=== PATIENT | female | born 1950 | race Caucasian/White ===

== ENCOUNTER → 2018-02-11 07:41 | Outpatient (CLI) | payer MEDICARE, OTHER, SELFPAY ==
[2018-02-11 11:09] LABS: Anion Gap 8 (5-15); BUN 14 mg/dL (7-18); BUN/Creat Ratio 15.6 RATIO (10-20); Chloride 108 mmol/L (98-107); Cholesterol 187 mg/dL (200); EST Glomerular Filtration Rate 67 mL/min (>60); Est Glom Filt Rate - Afr Amer 81 mL/min (>60); Glucose 105 mg/dL (74-106); High Density Lipoprotein 69 mg/dL; Sodium Level 146 mmol/L (136-145); Triglycerides 172 mg/dL; Very Low Density Lipoprotein 34 mg/dL (5-40)
== END ==
PROVIDERS: Family Provider Family Medicine; PCP Family Medicine; Visit Provider Family Medicine
DX: I10 Essential (primary) hypertension (principal); E78.00 Pure hypercholesterolemia, unspecified
CPT/HCPCS: 36415; 80048; 80061

== ENCOUNTER → 2018-04-03 10:28 | Outpatient (CLI) | payer MEDICARE, OTHER, SELFPAY ==
--- NOTE | 2018-04-03 10:29 | BI_ITS ---
MAMMOGRAPHY - BILATERAL SCREENING REASON FOR EXAM: Female, 68 years old. Routine annual screening examination. PERTINENT HISTORY: Non-contributory. Remote left stereotactic breast biopsy. TECHNIQUE: Digital bilateral breast eligio (3D mammographic acquisition) in the CC and MLO projections. 2-D mediolateral oblique (MLO) and craniocaudad (CC) views of both breasts were obtained. CAD: Full Field Digital Mammography with Computer Added Detection was performed. COMPARISON: Comparison is made with prior examination of March 27, 2017 and March 26, 2016. FINDINGS: Breast Composition: There are scattered areas of fibroglandular density. Stable 1.5 cm x 1.1 cm nodular density in the central retroareolar region of the left breast. A tissue marker is seen within this nodular density. No new mass lesion or cluster microcalcification is present. No other significant abnormalities are identified. There has been no significant change since the prior study. BI/SCREENING MAMM (CAD), BILAT IMPRESSION: Stable bilateral screening mammogram. Yearly follow-up mammogram recommended. (A) ASSESSMENT CATEGORY: BIRADS Category 2: Benign. A letter regarding these results will be sent to the patient by the facility within 30 days. Approximately 10% of breast cancers are not detected by mammography. A normal mammogram should not delay biopsy of a clinically suspicious abnormality. [id number] Electronically Signed: Danielito Chong MD at 12:36 EDT Tel [phone], Service support ,
== END ==
PROVIDERS: Family Provider Family Medicine; PCP Family Medicine; Visit Provider Family Medicine
DX: Z12.31 Encounter for screening mammogram for malignant neoplasm of breast (principal)
CPT/HCPCS: 77063; 77067

== ENCOUNTER → 2019-02-10 | Outpatient (CLI) | payer MEDICARE, OTHER, SELFPAY ==
[2019-02-10 10:08] LABS: Absolute Lymphocyte Count 1.95 X10^3/uL (0.83-4.51); Absolute Neutrophil Count 3.5 X10^3/uL (2.0-7.7); Basophil# 0.03 X10^3/uL; Basophil% 0.5 % (0-1); Eosinophil# 0.08 X10^3/uL; Eosinophils% 1.3 % (0-5); Hematocrit 42.7 % (37-47); Hemoglobin 14.7 g/dL (12.0-15.0); Lymphocyte # 1.95 X10^3/ul (4.0); Lymphocyte % 32.2 % (19-41); Mean Corp Hgb Conc 34.4 g/dL (32-36); Mean Corpuscular Hgb 32.7 pg (27.0-32.0); Mean Corpuscular Volume 94.9 fL (81-99); Monocyte# 0.44 X10^3/uL; Monocyte% 7.3 % (0-10); NRBC Flagged by Analyzer 0 % (0-5); Neutrophil # 3.53 X10^3/uL (2.7-7.7); Neutrophil % 58.4 % (47-70); Platelet Count 237 K/mm3 (150-450); RBC Distribution Width CV 12.6 % (11.6-14.6); White Blood Count 6.1 K/mm3 (4.4-11.0)
[2019-02-10 10:27] LABS: Anion Gap 9 (5-15); BUN 14 mg/dL (7-18); BUN/Creat Ratio 14.9 RATIO (10-20); Chloride 110 mmol/L (98-107); Cholesterol 163 mg/dL (200); Creatinine, Serum 0.94 mg/dL (0.55-1.02); EST Glomerular Filtration Rate 63 mL/min (>60); Est Glom Filt Rate - Afr Amer 76 mL/min (>60); Glucose 106 mg/dL (74-106); High Density Lipoprotein 65 mg/dL; Potassium 3.7 mmol/L (3.5-5.1); Sodium Level 145 mmol/L (136-145); Triglycerides 160 mg/dL; Very Low Density Lipoprotein 32 mg/dL (5-40)
== END | disposition home or self-care (01) ==
LOC: MTLAB 08:03
PROVIDERS: Family Provider Family Medicine; PCP Family Medicine; Referring Provider Family Medicine; Visit Provider Family Medicine
DX: I10 Essential (primary) hypertension (principal); E78.00 Pure hypercholesterolemia, unspecified
CPT/HCPCS: 36415; 80048; 80061; 85025

== ENCOUNTER → 2019-04-15 | Outpatient (CLI) | payer MEDICARE, OTHER, SELFPAY ==
--- NOTE | 2019-04-15 10:12 | BI_ITS ---
BILATERAL DIGITAL MAMMOGRAM WITH TOMOSYNTHESIS: Mediolateraloblique and craniocaudal views demonstrate an asymmetrical density in the superior medial aspect of the left breast which was previously identified no cluster but was seen on the previous exam obtained on 04/03/2018 and was previously biopsied and is unchanged. This appears to represent a focal area of fibrocystic change. No microcalcification or architectural distortion is seen. No evidence of skin thickening. No significant change since 04/03/2018 . Breast Density: There are scattered areas of fibroglandular density. CAD was used to assist in final assessment. IMPRESSION: NORMAL MAMMOGRAM BILATERALLY. ASSESSMENT CATEGORY: BIRADS Category 1: Negative. A letter regarding these results will be sent to the patient by the facility within 30 days. FOLLOW UP RECOMMENDATION: Yearly follow up mammogram recommended. (A) Approximately 10% of breast cancers are not detected by mammography. A normal mammogram should not delay biopsy of a clinically suspicious abnormality. Electronically Signed: Ajit Laura, at 17:31 EDT Tel , Service support , BI/SCREEN MAMM (CAD) W/JULIÁN CARDENAS
== END | disposition home or self-care (01) ==
LOC: OPBI 10:10
PROVIDERS: Family Provider Family Medicine; PCP Family Medicine; Referring Provider Family Medicine; Visit Provider Family Medicine
DX: Z12.31 Encounter for screening mammogram for malignant neoplasm of breast (principal)
CPT/HCPCS: 77063; 77067

== ENCOUNTER → 2020-02-16 07:59 | Outpatient (CLI) | payer MEDICARE, OTHER, SELFPAY ==
[2020-02-16 10:14] LABS: AST(SGOT) 17 U/L (15-37); Alanine Aminotransfer ALT/SGPT 35 U/L (13-56); Albumin, Serum 3.9 g/dL (3.2-5.0); Alkaline Phosphatase 82 U/L (45-117); Anion Gap 5 (5-15); BUN 16 mg/dL (7-18); Calcium,Total 9.1 mg/dL (8.5-10.1); Chloride 110 mmol/L (98-107); Cholesterol 163 mg/dL (200); Creatinine, Serum 0.94 mg/dL (0.55-1.02); EST Glomerular Filtration Rate 63 mL/min (>60); Est Glom Filt Rate - Afr Amer 76 mL/min (>60); Globulin 3.8 g/dL (2.2-4.2); Glucose 107 mg/dL (74-106); High Density Lipoprotein 57 mg/dL; Potassium 3.7 mmol/L (3.5-5.1); Protein, Total 7.7 g/dL (6.4-8.2); Sodium Level 143 mmol/L (136-145); Triglycerides 138 mg/dL; Very Low Density Lipoprotein 28 mg/dL (5-40)
== END ==
PROVIDERS: PCP Family Medicine; Referring Provider Family Medicine; Visit Provider Family Medicine
DX: I10 Essential (primary) hypertension (principal)
CPT/HCPCS: 36415; 80053; 80061

== ENCOUNTER → 2020-04-19 | Outpatient (CLI) | payer MEDICARE, OTHER, SELFPAY ==
--- NOTE | 2020-04-19 10:19 | BI_ITS ---
MAMMOGRAPHY - BILATERAL SCREENING REASON FOR EXAM: Female, 70 years old. Routine annual screening examination. PERTINENT HISTORY: Non-contributory. Remote left stereotactic breast biopsy. TECHNIQUE: Digital bilateral breast julián (3D mammographic acquisition) in the CC and MLO projections. 2-D mediolateral oblique (MLO) and craniocaudad (CC) views of both breasts were obtained. CAD: Full Field Digital Mammography with Computer Added Detection was performed. COMPARISON: Comparison is made with prior study dated 04/15/2019 and 04/03/2018. FINDINGS: Breast Composition: There are scattered areas of fibroglandular density. There are no dominant masses or suspicious calcifications. A tissue clip marker is seen within the nodular density in the slightly upper medial aspect of the left breast. This is unchanged. No other significant abnormalities are identified. There has been no significant change since the prior study. BI/SCREEN MAMM (CAD) W/JULIÁN BILAT IMPRESSION: Stable bilateral screening mammogram. Yearly follow-up mammogram recommended. (A) ASSESSMENT CATEGORY: BIRADS Category 2: Benign. A letter regarding these results will be sent to the patient by the facility within 30 days. Approximately 10% of breast cancers are not detected by mammography. A normal mammogram should not delay biopsy of a clinically suspicious abnormality. [id number] Electronically Signed: Danielito Chong, at 14:10 EDT , Service support ,
--- NOTE | 2020-04-19 10:24 | BD_ITS ---
STUDY: DUAL ENERGY X-RAY ABSORPTIOMETRY / DXA REASON FOR EXAM: Female, 70 years old. FIELD CARE AD[facility]ATE- SURGICAL -- HX OF HRT FOR SHORT WHILE -- TAKES 600MG CALCIUM + VITAMIN D -- DOES MODERATE AMOUNT OF EXERCISE -- HONG OF 0.5 INCH TECHNIQUE: Bone Mineral Density (BMD) measurements of lumbar spine and bilateral hips were obtained. COMPARISON: None. FINDINGS: Lumbar Spine (L1-L4): g/cm2 (1.193) / T-score (0.2) / Z-score (1.8) Findings are suggestive of normal bone density with a low fracture risk. Left Femur Total: g/cm2 (0.886) / T-score (-1.0) / Z-score (0.4) Left Femoral Neck: g/cm2 (0.853) / T-score (-1.3) / Z-score (0.3) Right Femur Total: g/cm2 (0.846) / T-score (-1.3) / Z-score (0.1) Right Femoral Neck: g/cm2 (0.783) / T-score (-1.8) / Z-score (-0.2) BD/Dexa Bone Density Study IMPRESSION: The patient is considered osteopenic as outlined below according to World [employer] Organization (WHO) criteria with a moderate fracture risk. Reference Information: The T-score is the number of standard deviations above or below the standard which is normal for young adults at their peak bone mineral density. The World Health Organization (WHO) interprets the T-scores as follows: Above -1 Normal bone density Between -1 and -2.5 Osteopenia Equal to / or below -2.5 Osteoporosis As a practical clinical guideline, osteopenia may be graded as follows: Mild -1 through -1.5 Moderate -1.6 through -2.0 Severe -2.1 through -2.4 The Z-score is the number of standard deviations above or below age-matched controls. A Z-score of less than -1.5 would be considered abnormal. References: 1. NIH Osteoporosis and Related Bone Diseases www osteo.org 2. International Society for Clinical Densitometry www iscd.org 3. National Osteoporosis Foundation www nof.org Electronically Signed: Danielito Chong, at 13:01 EDT , Service support ,
== END | disposition home or self-care (01) ==
LOC: OPBD 10:17
PROVIDERS: PCP Family Medicine; Referring Provider Family Medicine; Visit Provider Family Medicine
DX: Z78.0 Asymptomatic menopausal state (principal); Z12.31 Encounter for screening mammogram for malignant neoplasm of breast
CPT/HCPCS: 77063; 77067; 77080

== ENCOUNTER 2020-09-05 11:52 | Outpatient (RCR) | payer MEDICARE, OTHER, SELFPAY | END 2020-09-05 23:59 | LOC: IMMUN 11:52 | PROVIDERS: PCP Family Medicine; Visit Provider Family Medicine | DX: Z23 Encounter for immunization (principal) | CPT/HCPCS: 0011A; 0012A ==

== ENCOUNTER → 2021-02-21 07:32 | Outpatient (CLI) | payer MEDICARE, OTHER, SELFPAY ==
[2021-02-21 10:21] LABS: Absolute Lymphocyte Count 2.44 X10^3/uL (0.83-4.51); Basophil# 0.04 X10^3/uL; Basophil% 0.7 % (0-1); Eosinophil# 0.11 X10^3/uL; Eosinophils% 1.8 % (0-5); Hematocrit 46.4 % (37-47); Hemoglobin 15.4 g/dL (12.0-15.0); Lymphocyte # 2.44 X10^3/ul (0.83-4.51); Lymphocyte % 40.7 % (19-41); Mean Corp Hgb Conc 33.2 g/dL (32-36); Mean Corpuscular Hgb 31.3 pg (27.0-32.0); Mean Corpuscular Volume 94.3 fL (81-99); Mean Platelet Vol. 9.5 fl (6.2-12.0); Monocyte# 0.42 X10^3/uL; NRBC Flagged by Analyzer 0 % (0-5); Neutrophil # 2.96 X10^3/uL (2.7-7.7); Neutrophil % 49.5 % (47-70); Platelet Count 258 K/mm3 (150-450); RBC Distribution Width SD 45.1 fl (35.1-43.9); Red Blood Count 4.92 M/mm3 (4.2-5.4)
[2021-02-21 10:32] LABS: AST(SGOT) 19 U/L (15-37); Alanine Aminotransfer ALT/SGPT 34 U/L (13-56); Alkaline Phosphatase 85 U/L (45-117); Anion Gap 6 (5-15); BUN 15 mg/dL (7-18); Calcium,Total 9.1 mg/dL (8.5-10.1); Chloride 108 mmol/L (98-107); Cholesterol 172 mg/dL (200); Creatinine, Serum 0.94 mg/dL (0.55-1.02); EST Glomerular Filtration Rate 63 mL/min (>60); Est Glom Filt Rate - Afr Amer 76 mL/min (>60); Glucose 100 mg/dL (74-106); High Density Lipoprotein 66 mg/dL; Potassium 3.7 mmol/L (3.5-5.1); Sodium Level 143 mmol/L (136-145); Triglycerides 112 mg/dL; Very Low Density Lipoprotein 22 mg/dL (5-40)
== END ==
PROVIDERS: PCP Family Medicine; Referring Provider Family Medicine; Visit Provider Family Medicine
DX: I10 Essential (primary) hypertension (principal)
CPT/HCPCS: 36415; 80053; 80061; 85025

== ENCOUNTER → 2021-03-23 | Outpatient (CLI) | payer MEDICARE, OTHER, SELFPAY | END | disposition home or self-care (01) | LOC: LABSPEC 14:38 | PROVIDERS: PCP Family Medicine; Referring Provider Family Medicine; Visit Provider Family Medicine | DX: Z20.822 Contact with and (suspected) exposure to COVID-19 (principal) | CPT/HCPCS: 87635; U0005; U0003 ==

== ENCOUNTER → 2021-04-20 16:09 | Outpatient (CLI) | payer MEDICARE, OTHER, SELFPAY ==
--- NOTE | 2021-04-20 16:11 | BI_ITS ---
MAMMOGRAPHY - BILATERAL SCREENING REASON FOR EXAM: Female, 71 years old. Routine annual screening examination. PERTINENT HISTORY: Non-contributory. TECHNIQUE: Digital bilateral breast julián (3D mammographic acquisition) in the CC and MLO projections. 2-D mediolateral oblique (MLO) and craniocaudad (CC) views of both breasts were obtained. CAD: Full Field Digital Mammography with Computer Added Detection was performed. COMPARISON: Comparison is made with prior study dated 04/19/2020 and 04/15/2019. FINDINGS: Breast Composition: There are scattered areas of fibroglandular density. There are no dominant masses or suspicious calcifications. Stable 1.1 cm nodular density in the upper central portion of the left breast. A tissue clip marker seen within. No other significant abnormalities are identified. There has been no significant change since the prior study. BI/SCRN MAMM (CAD)W/JULIÁN BILAT IMPRESSION: Stable bilateral screening mammogram. Yearly follow-up mammogram recommended. (A) ASSESSMENT CATEGORY: BIRADS Category 2: Benign. A letter regarding these results will be sent to the patient by the facility within 30 days. Approximately 10% of breast cancers are not detected by mammography. A normal mammogram should not delay biopsy of a clinically suspicious abnormality. [id number] Electronically Signed: Danielito Chong MD at 8:39 EDT , Service support ,
== END ==
PROVIDERS: PCP Family Medicine; Referring Provider Family Medicine; Visit Provider Family Medicine
DX: Z12.31 Encounter for screening mammogram for malignant neoplasm of breast (principal)
CPT/HCPCS: 77063; 77067

== ENCOUNTER 2021-09-26 11:33 | Outpatient (CLI) | payer MEDICARE, OTHER, SELFPAY ==
[2021-09-26 11:38] LABS: Bacteria 0 SEEN /hpf (None Seen); Mucous, Urine 0 SEEN /hpf (<or=2+)
[2021-09-26 15:06] LABS: Absolute Lymphocyte Count 1.34 X10^3/uL (0.83-4.51); Absolute Neutrophil Count 3.3 X10^3/uL (2.0-7.7); Basophil# 0.04 X10^3/uL; Basophil% 0.8 % (0-1); Eosinophils% 1.9 % (0-5); Hematocrit 45.6 % (37-47); Hemoglobin 15.1 g/dL (12.0-15.0); Lymphocyte # 1.34 X10^3/ul (0.83-4.51); Lymphocyte % 25.8 % (19-41); Mean Corp Hgb Conc 33.1 g/dL (32-36); Mean Corpuscular Hgb 31.1 pg (27.0-32.0); Mean Platelet Vol. 9.4 fl (6.2-12.0); Monocyte# 0.44 X10^3/uL; Monocyte% 8.5 % (0-10); NRBC Flagged by Analyzer 0 % (0-5); Neutrophil # 3.26 X10^3/uL (2.7-7.7); Neutrophil % 62.8 % (47-70); Platelet Count 264 K/mm3 (150-450); RBC Distribution Width CV 12.7 % (11.6-14.6); RBC Distribution Width SD 44.3 fl (35.1-43.9); Red Blood Count 4.85 M/mm3 (4.2-5.4); White Blood Count 5.2 K/mm3 (4.4-11.0)
[2021-09-26 15:28] LABS: Color, Urine Yellow (Yellow); Glucose, Dipstick Normal (Normal); Ketone-Dipstick Negative (Negative); Leukocyte Esterase-Dipstick 25 /ul (Negative); Nitrite-Dipstick Negative (Negative); Occult Blood-Urine 10 /ul (Negative); Protein-Dipstick Negative (Negative); Specific Gravity, Urine 1.005 (1.002-1.030); Urine Bilirubin Dipstick Negative (Negative); Urine Clarity Sl. Cloudy (Clear); Urine Urobilinogen Normal (Normal); Urine pH 6.5 (5.0 - 8.0)
[2021-09-26 15:32] LABS: Vitamin D,25 Hydroxy 35.5 ng/mL
[2021-09-26 15:40] LABS: AST(SGOT) 21 U/L (15-37); Alanine Aminotransfer ALT/SGPT 34 U/L (13-56); Alkaline Phosphatase 86 U/L (45-117); Anion Gap 8 (5-15); BUN 18 mg/dL (7-18); BUN/Creat Ratio 18.2 RATIO (10-20); Calcium,Total 8.9 mg/dL (8.5-10.1); Chloride 108 mmol/L (98-107); Cholesterol 153 mg/dL (200); Creatinine, Serum 0.99 mg/dL (0.55-1.02); EST Glomerular Filtration Rate 59 mL/min (>60); Est Glom Filt Rate - Afr Amer 71 mL/min (>60); Globulin 3.9 g/dL (2.2-4.2); Glucose 126 mg/dL (74-106); High Density Lipoprotein 64 mg/dL; Potassium 3.8 mmol/L (3.5-5.1); Protein, Total 7.9 g/dL (6.4-8.2); Sodium Level 140 mmol/L (136-145); Thyroid Stim Hormone (TSH) 1.38 uIU/mL (0.358-3.74); Triglycerides 91 mg/dL; Very Low Density Lipoprotein 18 mg/dL (5-40)
[2021-09-26 16:03] LABS: White Blood Cells 0-5 SEEN /hpf (0-5)
[2021-09-26 16:04] LABS: Red Blood Cells-Urine 0-5 SEEN /hpf (0-5); Squamous Epithelial Cells - UA 0-5 SEEN /hpf (5-10)
[2021-09-27 12:01] LABS: Hemoglobin A1c 5.6 % (3.8-5.6)
== END 2021-09-26 23:59 | disposition home or self-care (01) ==
LOC: MFPLAB 11:35
PROVIDERS: PCP Family Medicine; Referring Provider Family Medicine; Visit Provider Family Medicine
DX: R73.09 Other abnormal glucose (principal); I10 Essential (primary) hypertension; M85.80 Other specified disorders of bone density and structure, unspecified site
CPT/HCPCS: 36415; 80053; 80061; 81001; 82306; 83036; 84443; 85025

== ENCOUNTER → 2022-05-01 | Outpatient (CLI) | payer MEDICARE, OTHER, SELFPAY ==
--- NOTE | 2022-05-01 10:28 | BI_ITS ---
MAMMOGRAPHY - BILATERAL SCREENING REASON FOR EXAM: Female, 72 years old. Routine annual screening examination. PERTINENT HISTORY: Non-contributory. Prior left stereotactic breast biopsy. TECHNIQUE: Digital bilateral breast julián (3D mammographic acquisition) in the CC and MLO projections. 2-D mediolateral oblique (MLO) and craniocaudad (CC) views of both breasts were obtained. CAD: Full Field Digital Mammography with Computer Added Detection was performed. COMPARISON: Comparison is made with prior study 04/20/2021 and 04/19/2020. FINDINGS: Breast Composition: There are scattered areas of fibroglandular density. There is a 1 cm x 1 cm nodular density in the deep upper lateral aspect of the right breast. Correlation with ultrasound is recommended. Stable 1.1 cm nodular density in the upper central portion of the left breast a tissue clip marker is once again seen within. No other significant abnormalities are identified. BI/SCRN MAMM (CAD)W/JULIÁN BILAT IMPRESSION: New 1 cm x 1 cm nodular density in the upper central portion of the left breast. Correlation with ultrasound is recommended. ASSESSMENT CATEGORY: BIRADS Category 0: Incomplete. Need additional imaging evaluation. A letter regarding these results will be sent to the patient by the facility within 30 days. Approximately 10% of breast cancers are not detected by mammography. A normal mammogram should not delay biopsy of a clinically suspicious abnormality. [id number] Electronically Signed: Danielito Chong MD at 11:26 EDT ,
== END | disposition home or self-care (01) ==
LOC: OPBI 10:26
PROVIDERS: PCP Family Medicine; Referring Provider Family Medicine; Visit Provider Family Medicine
DX: Z12.31 Encounter for screening mammogram for malignant neoplasm of breast (principal)
CPT/HCPCS: 77063; 77067

== ENCOUNTER → 2022-05-03 | Outpatient (CLI) | payer MEDICARE, OTHER, SELFPAY ==
--- NOTE | 2022-05-03 10:46 | US_ITS ---
STUDY: ULTRASOUND BREAST - RIGHT REASON FOR EXAM: Female, 72 years old. Abnormal screening mammogram TECHNIQUE: Axial and longitudinal images of the RIGHT breast were performed with a high resolution ultrasound transducer. # OF IMAGES: 22 COMPARISON: Comparison is made with prior mammogram dated 05/01/2022. FINDINGS: RIGHT Breast: The mammographic abnormality corresponds to a 5 mm x 5 mm x 5 mm hypoechoic solid nodule with posterior shadowing. This is at the 10 o''clock position breast at 10 cm from nipple. Adjacent to this, there is a 4 mm x 4 mm x 4 mm hypoechoic irregular solid nodule. Biopsy recommended. There is also evidence of an enlarged right axillary lymph node. This measures 2.8 cm x 1.6 cm x 1.1 cm _ US/Breast Limited Unilateral IMPRESSION: 2 adjacent small hypoechoic nodules at the 10 o''clock position breast at 10 cm from nipple as described. Biopsy recommended. Enlarged right axillary lymph node. ASSESSMENT CATEGORY: BIRADS Category 4: Suspicious - Biopsy Should Be Considered. A letter regarding these results will be sent to the patient by the facility within 30 days. Electronically Signed: Danielito Chong MD at 14:30 EDT ,
== END | disposition home or self-care (01) ==
LOC: OPUS 10:45
PROVIDERS: PCP Family Medicine; Visit Provider Family Medicine
DX: R92.8 Other abnormal and inconclusive findings on diagnostic imaging of breast (principal)
CPT/HCPCS: 76642

== ENCOUNTER → 2022-05-24 | Outpatient (CLI) | payer MEDICARE, OTHER, SELFPAY ==
--- NOTE | 2022-05-24 | BRBX_PTH ---
PATIENT: DAVID HOUSE LOC: OPUS U#:[id number] AGE/SX: 72/F ROOM: RE05/24/[address]: Dr. Claudy Moise MD : 1950 BED: DIS: 05/24/2022 SPEC #: [id number] RECD: 05/25/22 10:07 STATUS: CANDELARIO GIVENS #: [id number] VANESSA: 05/24/22 00:[address]: Claudy Moise DEPT: SURGICAL PATHOLOGY RECD BY: Lawrence Hackett ENTERED: 05/25/22 10:08 SP TYPE: BREAST BX OTHR DR: Dr. Ajit Foy MD Tissues: Right breast, NOS Procedures: Surgery Specimen Level IV HEADER OPERATION: Biopsy right breast PRE-OP DIAGNOSIS: Abnormal mammogram TISSUE SUBMITTED: Biopsy right breast MICROSCOPIC DIAGNOSIS Right breast, core biopsy: Invasive ductal carcinoma, nuclear grade 1 (0.4 cm in greatest length). Ductal carcinoma in situ. See comment. ARIN:juancho 05/28/2022 COMMENT Ductal carcinoma in situ shows solid pattern, nuclear grade low to intermediate and focal calcifications. Immunohistochemistry ([id number]) supports the above diagnosis. ER/MN/[id number] studies are being performed on sections of tumor and the results from this study will be reported separately ([id number]). Case has been reviewed in consultation with Dr. Pollock who concurs with the above diagnosis. IDC:AM MICROSCOPIC DESCRIPTION Slides are reviewed. GROSS DESCRIPTION Received in fixative is one container labeled with the patient's name and designated right breast. The specimen consists of multiple elongated fragments of remy-yellow fibroadipose tissue that in aggregate measure 2.5 x 0.6 x 0.1 cm. The entire specimen is submitted in one cassette. / ARIN:juancho 05/25/2022 TC:0 CPT: 64853
--- NOTE | 2022-05-24 | IMM_PTH ---
PATIENT: DAVID HOUSE LOC: OPUS U#:[id number] AGE/SX: 72/F ROOM: RE05/24/[address]: Dr. Claudy Moise MD : 1950 BED: DIS: 05/24/2022 SPEC #: [id number] RECD: 05/28/22 13:31 STATUS: CANDELARIO REQ #: [id number] VANESSA: 05/24/22 00:[address]: Claudy Moies DEPT: IMMUNOHISTOCHEMISTRY RECD BY: Liss Tao ENTERED: 05/28/22 13:34 SP TYPE: IMMUNO OTHR DR: Dr. Ajit Foy MD Tissues: Right breast, NOS Procedures: CALPONIN-1 (add) CK5-6 (add) CK8 (add) E-CAD (add) HER2 JORDY (add) KI-67 (add) P53 (add) AZ (add) IN SITU HYBRIDIZATION P40 (add) ER (initial) PHYSICIAN & [address] [address] SPECIMEN INFORMATION: Tissue Source: Right breast Clinical Info: Abnormal mammogram Specimen Number: [id number] CPT code: 43518, 85101 x6, 04089 x3, 31134 x2 METHODOLOGY: Deparaffinized sections of prefer/formalin-fixed tissue or PAP/DQ stained slides are incubated with monoclonal/polyclonal antibodies/oligonucleotide probes. Localization is made via biotin free immunoperoxidase method. Appropriate controls are performed and reacted as expected. Results on target cell population are indicated in the following table: RESULTS: ANTIBODY / CLONE RESULT E-Cad (ECH-6) positive CK8 ([id number]) positive Calponin-1 (CA368Q) negative * CK5-6 (D5 & 1684) negative * P40 (BC28) negative * P53 (DO-7) positive, low (wild type) Ki-67 (30-9) positive, low, ~5-10% *?Positive in the area of DCIS. MORPHOMETRIC ANALYSIS ER (clone 6F11) >95%, strong intensity AZ (clone 16/1E2) >95%, strong intensity Her-2Neu (clone CB11) 1-2+ ?Area of DCIS shows positive staining (3+). The prognostic test for HER2 is performed on formalin-fixed paraffin embedded tissue. A 3+ (positive) staining pattern is defined as intense, homogeneous, complete, circumferential membranous staining in >10% of contiguous tumor cells. A similar weak (2+) staining pattern is interpreted as equivocal. FCO follow-up testing is recommended for all equivocal cases. Positivity/negativity for ER/AZ is reported if > or < 1% of the tumor cells are immuno- reactive, respectively. The ASCO/CAP criteria is used for scoring. Reference: Journal of Clinical Oncology, 2013; 31:0487-9715 & 2010; 16:2633-7314. Duration of fixation: 54 Hrs; Sample Adequate: Yes. These assays have not been validated on decalcified tissues. Results should be interpreted with caution given the likelihood of false negativity on decalcified specimens. These tests were developed and their performance characteristics determined by [facility]. They may not have been cleared or approved by the U.S. Food and Drug Administration. The FDA has determined that such clearance or approval is not necessary. The above immunohistochemical/dualISH markers are ordered and reviewed by the Pathologist. INTERPRETATION: Right breast, core biopsy: Invasive ductal carcinoma. Ductal carcinoma in situ. Positive for estrogen receptors (favorable prognostic indicator). Positive for progesterone receptors (favorable prognostic indicator). Equivocal for overexpression of YFN1bkb. SJ:juancho 05/29/2022 ADDENDUM ADDENDUM ADDENDUM ADDENDUM ADDENDUM ADDENDUM ADDENDUM ADDENDUM ADDENDUM ADDENDUM ADDENDUM ADDENDUM ADDENDUM ADDENDUM ADDENDUM ADDENDUM ADDENDUM ADDENDUM ADDENDUM ADDENDUM ADDENDUM ADDENDUM 05/30/2022 12:15 ADDENDUM 05/30/2022 12:15 ADDENDUM 05/30/2022 12:15 ADDENDUM 05/30/2022 12:15 ADDENDUM 05/30/2022 12:15 IN SITU HYBRIDIZATION (FCO) FOR HER2 Interpretation: Negative / Not Amplified HER2 : CEP-17 Ratio: 1.1 Average HER2 Signal: 2.1 Average CEP-17 Signal: 1.9 Number of Tumor Cells Scanned: 50 Interpretative Information: The INFORM HER2 Dual FCO DNA Probe Cocktail assay is performed on formalin-fixed paraffin embedded tissue and determines HER2 gene status by detecting HER2 copies via silver in situ hybridization (SISH) and Chromosome 17 copies via chromogenic red in situ hybridization on tumor cells. A minimum of 20 cells representing > 10% of contiguous and homogeneous invasive tumor cells were analyzed. HER2 gene status is classified as Non-amplified (HER2/Chr17 ratio < 2.0) or Amplified (HER2/Chr17 ratio greater than or equal to 2.0). If the resulting HER2/Chr17 ratio falls within 1.8 - 2.2 (Borderline), retesting by FISH is recommended. Reference: Mahsa CHAND, Jam MOONEY, Carmine JUAREZ, et al: Recommendations for Human Epidermal Growth Factor Receptor 2 Testing in Breast Cancer: [place] Society of Clinical Oncology / [employer] of [place] [employer] Clinical Practice Guideline Update. J Clin Oncol 31:6153-1290, 2013. SJ:juancho 05/30/2022
--- NOTE | 2022-05-24 12:26 | US_ITS ---
STUDY: ULTRASOUND BREAST - RIGHT REASON FOR EXAM: Female, 72 years old. Ultrasound guided right breast biopsy. TECHNIQUE: Axial and longitudinal images of the RIGHT breast were performed with a high resolution ultrasound transducer. # OF IMAGES: 19 COMPARISON: Comparison is made with prior sonogram of the right breast dated 05/03/2022. FINDINGS: RIGHT Breast: Degenerative performed 3 core biopsies of the hypoechoic nodular density at the 10 o''clock position in the breast at 10 cm from nipple. Core biopsies of a second 4 mm x 6 mm x 5 mm nodular densities was obtained as well. US/US Breast Biopsy 1st Lesion IMPRESSION: Successful ultrasound-guided breast biopsy of the 2 adjacent nodular densities in the right breast. ASSESSMENT CATEGORY: BIRADS Category 4: Suspicious - Biopsy Should Be Considered. A letter regarding these results will be sent to the patient by the facility within 30 days. Electronically Signed: Danielito Chong MD at 8:55 EST ,
--- NOTE | 2022-05-24 13:49 | PCM.OPRPT ---
Report of Operation Date of Procedure: 05/24/22 Pre-Operative Diagnosis: Right breast abnormal mammogram Post-Operative Diagnosis: Same Surgery/Procedure Performed:: Ultrasound-guided right breast core needle biopsy Specimen's removed: Right breast specimens Description of Procedure: The right breast was imaged and the mass was localized. An area inferior to this was prepped and draped and injected with a small amount of anesthetic. Next a small bobbi was made with a scalpel. The 14-gauge biopsy needle was placed into the breast but every time the needle was fired a ricocheted off the mass superiorly. Next the mammotome needle was placed in the breast deep to it and several biopsies were performed. A clip was then placed in the mass. Steri-Strip and bandage were then placed over the incision. Patient tolerated the procedure well.
== END | disposition home or self-care (01) ==
PROVIDERS: PCP Family Medicine; Referring Provider Surgery; Visit Provider Surgery
DX: D05.81 Other specified type of carcinoma in situ of right breast (principal); R92.8 Other abnormal and inconclusive findings on diagnostic imaging of breast
CPT/HCPCS: 19083; 88305; 88341; 88342; 88368

== ENCOUNTER 2022-06-19 08:23 | Day surgery (SDC) | payer MEDICARE, OTHER, SELFPAY ==
[2022-06-19] VITALS (9 sets, daily range): BP systolic 94–133; BP diastolic 46–63; PULSE 54–72; RESP 14–16; TEMP 36.6–37.1; O2SAT 93–98; BMI 28.3
--- NOTE | 2022-06-19 | AXNB_PTH ---
PATIENT: DAVID HOUSE LOC: [facility] [place] U#:[id number] AGE/SX: 72/F ROOM: RE06/19/[address]: Dr. Claudy Moise MD : 1950 BED: DIS: 06/19/2022 SPEC #: [id number] RECD: 06/19/22 12:55 STATUS: CANDELARIO RESaima #: [id number] VANESSA: 06/19/22 00:[address]: Claudy Moise DEPT: SURGICAL PATHOLOGY RECD BY: Liss Tao ENTERED: 06/19/22 13:25 SP TYPE: AX NODE BX OTHR DR: Dr. Ajit Foy MD Tissues: A - Axillary lymph node, NOS B - Right breast, NOS C - Right breast, NOS D - Skin of breast, NOS Procedures: Frozen Section (charge) Frozen Section Add'l (chg) Surgery Specimen Level IV Surgery Specimen Level V HEADER OPERATION: Partial mastectomy, stereotactic wire localization and radiotracer PRE-OP DIAGNOSIS: Invasive ductal carcinoma of breast TISSUE SUBMITTED: A ? Right axillary sentinel lymph nodes, FS, B ? Right breast mass, short suture - superior, long suture - lateral, C ? Right breast mass new superior margin, stitch olson new superior margin, D ? Right axillary skin tag FROZEN SECTION DIAGNOSIS A. Right axillary sentinel lymph nodes, biopsy: Two out of two lymph nodes negative for carcinoma. AM:juancho 06/19/2022 MICROSCOPIC DIAGNOSIS A. Right axillary sentinel lymph node, biopsy: Two out of two lymph nodes, negative for metastatic carcinoma. See comment. B. Right breast mass, partial mastectomy with needle localization: Invasive ductal carcinoma. Ductal carcinoma in situ. See cancer summary in the comment section. C. Right breast mass, new superior margin: Negative for carcinoma. D. Right axillary skin lesion, biopsy: Intradermal nevus. SJ:juancho 06/22/2022 COMMENT A. The lymph nodes are negative for metastatic carcinoma on multiple H & E levels and immunohisto-chemical stains for cytokeratins ([id number]). B. BREAST CANCER SUMMARY Procedure ? partial mastectomy with needle localization Specimen laterality - right Tumor site ? not specified Tumor size ? 1.5 x 1 x 1 cm Histologic type ? invasive ductal carcinoma, not otherwise specified. Histologic grade (Elly grade): Glandular/tubular differentiation score - 2 Nuclear pleomorphism score - 2 Mitotic count score - 1 Overall grade - grade 1 (score of 5) Tumor focality ? single focus of invasive carcinoma. Ductal carcinoma in situ - present Positive for extensive intraductal component (EIC). Size (extent) of DCIS ? DCIS comprise about 30% of the total tumor volume. Number of blocks with DCIS - 6 Number of blocks examined - 13 Architectural pattern ? solid and cribriform Nuclear grade - grade 2 (intermediate) Necrosis - present, central (expansive comedo necrosis) Lobular carcinoma in situ ? not identified Tumor extension: Skin ? skin is not present. Nipple ? not applicable Skeletal muscle ? no skeletal muscle is present. Margins: Invasive carcinoma margins - uninvolved by invasive carcinoma. The tumor is 0.3 cm away from the closest posterior and medial margins. Ductal carcinoma in situ margins ? uninvolved by DCIS. DCIS is 0.1 cm away from the closest posterior margin and 0.3 cm away from the next closest medial margin. Regional lymph nodes: Number of lymph nodes examined - 2 Number of sentinel lymph nodes examined - 2 Number of lymph nodes with macrometastases, micrometastases or isolated tumor cells - 0 Treatment effect - no known presurgical therapy. Lymphvascular invasion ? not identified Dermal lymphvascular invasion ? not applicable Distant metastasis - not applicable Additional Pathologic Findings ? intraductal hyperplasia without atypia. Ancillary Studies: Previously performed on same tumor ([id number] / [id number]) ER: positive (>95%, strong intensity) [place]: positive (>95%, strong intensity) Qyh5ojg: equivocal (1-2+) Ipl1cmo by FCO: Negative / not amplified Microcalcifications ? not identified Clinical History - Please make reference to previous specimen ([id number]), right breast, core biopsy with diagnosis of ?invasive ductal carcinoma and ductal carcinoma in situ.? PATHOLOGIC STAGE: pT1c pN0 pMx The above summary is in compliance with [employer] [place] [employer] (CAP) Cancer Protocols Checklist and [place] Joint Committee on Cancer (AJCC), Staging Manual, 8th Ed. Case has been reviewed in consultation with Dr. Pollock who concurs with the above diagnosis. IDC:AM MICROSCOPIC DESCRIPTION Slides are reviewed. GROSS DESCRIPTION A - Received fresh for frozen section consultation labeled with the patient's name is a specimen designated right axillary sentinel lymph node. The specimen consists of two irregular fragments of remy-yellow fibrofatty tissue. One fragment measures 3 x 2 x 1 cm and the other fragment measures 2 x 1 x 0.5 cm. Dissection reveals two nodules. The nodules are sectioned and totally submitted in three cassettes as follows: 1 - one small nodule, 2 & 3 - larger nodule, serially sectioned. The specimen is submitted after additional fixation. / AM:juancho 06/19/2022 B - Received fresh for intraoperative consultation labeled with the patient's name is a specimen designated right breast mass. The specimen consists of a piece of fibroadipose tissue with needle localization measuring 6.5 x 5 x 3 cm. The specimen is oriented as follows: short suture - superior, long suture - lateral. The specimen is inked as follows: anterior - yellow, posterior - black, superior - blue, inferior - green, medial - red and lateral - orange. Serial sections reveal a remy, indurated mass measuring 1.5 x 1 x 1 cm. This mass is 0.2 cm away from the closest posterior margin. This information is conveyed to the surgeon intraoperatively. Sections of the rest of the specimen reveal remy-yellow adipose cut surfaces with scant fibrous areas. Contact Printer [employer] Film sections are submitted in 13 cassettes as follows: 1 - perpendicular superior, inferior and lateral margins, 2 - perpendicular medial margin, 35??entire tumor with closest posterior margin, 6 - food service representative section adjacent to the tumor, 712??food service representative sections away from the tumor, 13 - perpendicular anterior margin. The specimen is submitted after additional fixation. / SJ:juancho 06/20/2022 C - Received in fixative is one container labeled with the patient's name and designated right breast mass, stitch olson new superior margin. The specimen consists of a piece of remy-yellow adipose tissue measuring 3 x 2.5 x 0.5 cm. The specimen is oriented by a suture marking new margin. The new margin is inked black and the opposite margin is inked blue. Sections do not reveal any mass lesion. The entire specimen is submitted in two cassettes. The specimen is submitted after additional fixation. / ARIN:juancho 06/20/2022 D - Received in fixative is one container labeled with the patient's name and designated right axillary skin tag. The specimen consists of a polypoid piece of remy-white skin measuring 1.5 x 0.7 x 0.5 cm. The specimen is inked, bisected and submitted entirely in one cassette. The specimen is submitted after additional fixation. / ARIN:juancho 06/20/2022 TC:0 CPT: 45904 x2, 35024 x2, 13444, 63645, 03390 x2
--- NOTE | 2022-06-19 | IMM_PTH ---
PATIENT: DAVID HOUSE LOC: [facility] [place] U#:[id number] AGE/SX: 72/F ROOM: RE06/19/[address]: Dr. Claudy Moise MD : 1950 BED: DIS: 06/19/2022 SPEC #: [id number] RECD: 06/22/22 14:01 STATUS: CANDELARIO RESaima #: [id number] VANESSA: 06/19/22 00:[address]: Claudy Moise DEPT: IMMUNOHISTOCHEMISTRY RECD BY: Liss Tao ENTERED: 06/22/22 14:02 SP TYPE: IMMUNO OTHR DR: Dr. Ajit Foy MD Tissues: A - Axillary lymph node, NOS Procedures: CK7 (add) Pankeratin (initial) Pankeratin (add) PHYSICIAN & INSTITUTION [place] [id number] SPECIMEN INFORMATION: Tissue Source: A ? Right axillary sentinel lymph nodes Clinical Info: Invasive ductal carcinoma of breast Specimen Number: [id number] A1-A3 CPT code: 38326, 48813 x5 METHODOLOGY: Deparaffinized sections of prefer/formalin-fixed tissue or PAP/DQ stained slides are incubated with monoclonal/polyclonal antibodies/oligonucleotide probes. Localization is made via biotin free immunoperoxidase method. Appropriate controls are performed and reacted as expected. Results on target cell population are indicated in the following table: RESULTS: ANTIBODY / CLONE RESULT Block A1 AE1-3 (AE1/AE3/PCK26) negative CK7 (OV-TL12/30) negative Block A2 AE1-3 (AE1/AE3/PCK26) negative CK7 (OV-TL12/30) negative Block A3 AE1-3 (AE1/AE3/PCK26) negative CK7 (OV-TL12/30) negative These tests were developed and their performance characteristics determined by [facility]. They may not have been cleared or approved by the U.S. Food and Drug Administration. The FDA has determined that such clearance or approval is not necessary. The above immunohistochemical/dualISH markers are ordered and reviewed by the Pathologist. INTERPRETATION: A. Right axillary sentinel lymph nodes, biopsy: Two out of two lymph nodes, negative for metastatic carcinoma. SJ:juancho 06/22/2022
--- NOTE | 2022-06-19 09:00 | NM_ITS ---
PROCEDURE: NUCLEAR MEDICINE Injection [place] Node - RIGHT breast(s). REASON FOR EXAM: Female, 72 years old. Right breast cancer. TECHNIQUE: [place] node localization using radionuclide methods of the RIGHT breast(s) was performed following subcutaneous administration of 1.1 mCi of of sulfur colloid Tc-99m. COMPARISON STUDIES : NM - None. CR - Not available for review at this time. CT - Not available for review at this time. MR - Not available for review at this time. US - Not available for review at this time. FINDINGS: 1.1 mCi of technetium labeled sulfur colloid was injected subcutaneously in the periareolar region. NM/Lymph Node Injection Only IMPRESSION: 1.1 mCi of technetium labeled sulfur colloid was injected subcutaneously in the periareolar region for sentinel node imaging. Electronically Signed: Danielito Chong MD at 10:24 EST ,
--- NOTE | 2022-06-19 09:14 | EKG12_ITS ---
Test Reason : PRE OP Blood Pressure : / mmHG Vent. Rate : 064 BPM Atrial Rate : 064 BPM P-R Int : 186 ms QRS Dur : 104 ms QT Int : 404 ms P-R-T Axes : 044 -46 041 degrees QTc Int : 416 ms Normal sinus rhythm Left axis deviation Abnormal ECG When compared with ECG of 15-JUL-2006 13:13, No significant change was found Confirmed by JAI WOODS, RUDY ([id number]), brands editor DAYNE SAGASTUME ([id number]) on 06/22/2022 11:00:12 AM Referred By: Claudy Moise Confirmed By:CARLA VERGARA MD
[2022-06-19] MEDS: Lactated Ringers 1,000 ML 15 ML IV ×2 (09:29→17:52)
--- NOTE | 2022-06-19 10:23 | BI_ITS ---
SURGICAL BREAST SPECIMEN RADIOGRAPH CLINICAL: Document presence of tissue clip marker in biopsy specimen. FINDINGS: Specimen shows presence of tissue clip marker. Electronically Signed: Danielito Chong MD at 13:16 EST , BI/Breast Biopsy Specimen IMPRESSION: undefined
--- NOTE | 2022-06-19 10:43 | HP.PCM_ITS ---
History and Physical Date of Admission: 06/19/22 Intake Intake Visit Reasons:?DISCUSS SURGERY Chief Complaint: Discuss Surgery Exercise Specialist Required: No Is patient in pain?: No Allergies No Known Allergies Allergy (Unverified 06/13/22 10:33) Medications amlodipine 10 mg tablet 10 mg PO DAILY 05/14/22 [History Confirmed 06/13/22] atorvastatin 40 mg tablet 40 mg PO DAILY 05/14/22 [History Confirmed 06/13/22] biotin 2,500 mcg capsule 2,500 mcg PO DAILY 05/14/22 [History Confirmed 06/13/22] brimonidine 0.2 % eye drops 1 drp ophthalmic (eye) BID 05/14/22 [History Confirmed 06/13/22] calcium carbonate 600 mg-vitamin D3 12.5 mcg (500 unit) capsule (Calcium 600 with Vitamin D3) 1 cap PO DAILY 05/14/22 [History Confirmed 06/13/22] latanoprost 0.005 % eye drops 1 drp ophthalmic (eye) DAILY 05/14/22 [History Confirmed 06/13/22] losartan 100 mg tablet 100 mg PO DAILY 05/14/22 [History Confirmed 06/13/22] metoprolol succinate 50 mg tablet,extended release 24 hr 50 mg PO DAILY 05/14/22 [History Confirmed 06/13/22] PFSH Medical History? Basal cell carcinoma of skin of nose Erythrocytosis Glaucoma Hemorrhoids High cholesterol Surgical History? History of breast biopsy History of cataract extraction History of section History of cholecystectomy History of colonoscopy History of D&C History of hysterectomy History of YAG laser capsulotomy of lens of left eye S/P Mohs surgery for basal cell carcinoma Family History? Grandfather Cancer ?? ? lung ?? ? maternalGrandmother Diabetes ?? ? paternal CVA (cerebral vascular accident) ?? ? maternalMother Hypertension CVA (cerebral vascular accident) Social History? household members:? spouse Smoking Status:? Never smoker alcohol intake:? current alcohol intake frequency: holidays/special occasions only Alcohol type: wine details:? occasional substance use type:? does not use HPI HPI HPI: Patient is a 72-year-old female with invasive lobular carcinoma of the right breast.? Patient is here to discuss surgery after biopsy.? Patient has seen oncology to discuss her immunohistochemistry with them. ROS General General: No weight change or fatigue HEENT HEENT: No difficulty swallowing Endo Endocrine: No thyroid disease Breast Breast: Yes right breast lump Musc Musculoskeletal: No back problems or arthritis Cardio Cardiovascular: No pacemaker, heart disease, atrial fibrillation, high blood pressure, heart attack, heart stent, palpitations or chest pain Psych Psychiatric: No depression or anxiety Resp Respiratory: No shortness of breath, No cough, No COPD, No asthma and No emphysema Gastro Gastrointestinal: No abdominal pain, No nausea or vomiting, No diarrhea, No constipation, No blood in stool, No acid reflux, No hemorrhoids, No ulcers, No gallbladder problem and No black,tarry stools Cooper Hematologic: No blood thinners Exam Const General: cooperative Orientation: alert and oriented x3 HENMT Head: normal to inspection Neck Neck: normal visual inspection and full ROM Chest Chest palpation & inspection: normal inspection of the chest Resp Effort & Inspection: normal respiratory effort Auscultation: clear to auscultation bilaterally Cardio Rate: regular rate Rhythm: regular rhythm GI Inspection: non-distended Palpation: soft and nontender Skin General: no rashes or lesions noted Neuro General: patient alert and patient oriented x3 Extrem General: full ROM Psych Appearance: grossly normal Mental Status: mental status grossly normal Assessment and Plan Assessment and Plan (1) Invasive ductal carcinoma of breast: ?Status:?Acute ?Qualifiers: ?Laterality:?right? Qualified Code(s):?C50.911 - Malignant neoplasm of unspecified site of right female breast ?Plan: Patient has invasive carcinoma of the right breast.? I discussed this with her in detail and I discussed surgical options.? I discussed partial mastectomy with sentinel lymph node biopsy with possible axillary dissection and stereotactic wire localization.? Patient understands the procedure and is willing to proceed.? I also discussed postoperative course as well as radiation and possible chemotherapy needs.? Patient understands the risks and is when to proceed with partial mastectomy and sentinel lymph node biopsy.? I discussed the risks of the procedure such as bleeding, infection, hematoma formation, nerve damage or seroma or hematoma formation.? Patient understands the risks and is willing to proceed. Claudy Moise MD Pager: [facility], [address] [place] [address] Office: I have examined the patient and the H&P has been reviewed. There are no clinical changes since date of exam.
[2022-06-19] MEDS: Cefazolin 2 GM in 0.9% Normal Saline 100 ML IV (12:05)
[2022-06-19] MEDS: Isosulfan Blue 1% 5 ML Vial (12:20)
[2022-06-19] MEDS: 0.9% Normal Saline (Pres. free 10 ML Vial (12:22)
[2022-06-19] MEDS: Bupivacaine Mpf 0.5% 30 ML VIAL (13:23)
--- NOTE | 2022-06-19 13:58 | PCM.OPRPT ---
Report of Operation Date of Procedure: 06/19/22 Pre-Operative Diagnosis: Right breast cancer Post-Operative Diagnosis: Right breast cancer Surgery/Procedure Performed:: 1. Stereotactic guided right breast wire localization 2. Right partial mastectomy 3. Right axillary sentinel lymph node biopsy Specimen's removed: 1. Right breast mass 2. Right breast mass new superior margin 3. Right axillary sentinel lymph nodes 4. Axillary skin tag Description of Procedure: Patient was brought to the stereotactic table and placed into the stereotactic table. The breast was compressed and spot images were obtained and the clip was centered in the x-ray. Neck stereotactic images were obtained and the clip was targeted. The breast was prepped and injected with local anesthetic and then the wire was placed in the breast under stereotactic x-ray guidance. The needle was removed leaving the wire in place and then mammogram was obtained and the wire appeared to be in good position. Next the patient was brought to the operating room and general anesthesia was induced. 5 cc of Lymphazurin was injected in the retroareolar space on the right followed by 5 cc of saline as a chaser. 5 minutes of breast massage were performed. Next the breast and axilla were prepped and draped in usual sterile fashion. The right axillary incision was marked and then injected with local anesthetic and then incised with a scalpel and electrocautery was used to deepen this to the axillary fascia. Next using the neoprobe and searching for blue dye 2 lymph nodes were removed using small clips and sharp dissection. There is good hemostasis and these nodes were sent for pathology. Frozen section revealed that both nodes were negative. The axillary incision was packed with wet gauze and then the breast was addressed. An incision was made anterior to where the wire entered the breast and then the wire was brought into the incision. The wire was followed to the mass which was dissected free circumferentially using electrocautery. This was marked and sent for mammogram which showed that the wire and clip were both in the specimen. Next the patient's mass was sent for pathology and a new superior margin was removed due to a little bit of nodularity. The new margin was marked with a suture. After the margins came back negative the breast incision was closed with interrupted 3-0 Vicryl suture in a running 4-0 Monocryl. The axillary packing was removed and the deep axillary contents were closed using 3-0 Vicryl suture. The skin was closed using interrupted 3-0 Vicryl suture in a running 4-0 Monocryl. The patient is skin tag just adjacent to the incision which was removed. Next Dermabond was placed over both incisions and a Surgi-Bra was placed. Patient was awoken and taken to PACU in stable condition. Admit VTE Documentation VTE Mechan Device Prophylaxis: SCD's
--- NOTE | 2022-06-19 14:02 | DCINST_ITS ---
Discharge Instructions Procedure Breast Surgery Diet Discharge Diet: No restrictions Activity Discharge Activity: May Not Drive (for 2-3 days or while taking narcotic pain medications.) and May Shower May shower in (days): 1 Lifting Restrictions: 15 lbs for 1 week Dressing / Incision Call your doctor if your incision/area has: Continuous Slow Oozing, Sudden Increased Bleeding, Increased Pain/ Swelling, Increased Redness, Foul Smelling Discharge and Swelling at the incision site Call your doctor if you observe: Fever of 101 or Higher Suture Line Care: Avoid Pulling/Pushing and Avoid Pinching/Bending Additional Dressing/Incision Instructions:: Tightfitting supportive bra for s upport. Ibuprofen and Tylenol for pain. Oxycodone for breakthrough pain. Follow Up Care Please Follow Up With: Claudy Moise MD When: Please call to schedule 2 week follow up appointment. [phone] Test Results: Test results from this visit will be discussed in further detail at your follow- up appointment, if applicable. Discharge Plan Admission Attending Provider: Claudy Moise Primary Care Provider: Ajit Foy Discharge Orders/Prescriptions Prescriptions: New oxycodone 5 mg tablet 5 - 10 mg PO Q6H PRN (Reason: pain) 5 Days Qty: 20 0RF No Action amlodipine 10 mg tablet 10 mg PO DAILY losartan 100 mg tablet 100 mg PO DAILY metoprolol succinate 50 mg tablet extended release 24 hr 50 mg PO DAILY atorvastatin 40 mg tablet 40 mg PO DAILY latanoprost 0.005 % drops 1 drp ophthalmic (eye) DAILY brimonidine 0.2 % drops 1 drp ophthalmic (eye) BID Rx Instructions: administer approximately 8 hours apart calcium carbonate-vitamin D3 [Calcium 600 with Vitamin D3] 600 mg-12.5 mcg (500 unit) capsule 1 cap PO DAILY biotin 2,500 mcg capsule 2,500 mcg PO DAILY Other Ambulatory Orders: 12 Lead EKG (Routine) Timeframe: [id number] Location: None Selected Ordered By: Dr. Geoff South Referrals / Follow Up: Ajit Foy MD [Primary Care Provider] - Disposition Disposition (needs filled in before D/C Order can be placed): Home, Self Care
--- NOTE | 2022-06-19 14:20 | EKG12_ITS ---
Test Reason : CHEST PAIN Blood Pressure : / mmHG Vent. Rate : 060 BPM Atrial Rate : 060 BPM P-R Int : 204 ms QRS Dur : 106 ms QT Int : 444 ms P-R-T Axes : 058 -43 058 degrees QTc Int : 444 ms Normal sinus rhythm Left axis deviation Abnormal ECG When compared with ECG of 19-JUN-2022 09:14, MANUAL COMPARISON REQUIRED, DATA IS UNCONFIRMED Confirmed by JAI WOODS, RUDY ([id number]), photo editor DAYNE SAGASTUME ([id number]) on 06/22/2022 10:52:15 AM Referred By: Claudy Moise Confirmed By:CARLA VERGARA MD
[2022-06-19] MEDS: Mag Hydrox/Al Hydrox/Simeth 30 ML UDC PO (14:24)
--- NOTE | 2022-06-19 15:02 | SUR.PHASEI ---
1420 PATIENT BECOMES NAUSOUS, PALE AND DIAPHORETIC. COMPLAINS OF SEVERE CHEST PAIN. SPOKE WITH DR ARCE WHO GIVES ORDER FOR MYLANTA 30ML ORAL, STAT EKG AND TROPONIN. 1445 PATIENT STILL COMPLAINS OF CHEST PAIN. UPDATED DR ARCE WHO GIVES ORDER FOR NITRO SUBLINGUAL 0.4MG EVERY 5 MINS UP TO 3 DOSES FOR CHEST PAIN. 1504 PATIENT STATES PAIN HAS IMPROVED. NO NEED FOR FURTHER NITRO
[2022-06-19 15:05] LABS: Troponin-I HS 3 pg/mL (3.0-54.0)
--- NOTE | 2022-06-19 15:07 | SUR.PHASEI ---
PATIENT HAS ONE EPISODE EMESIS
[2022-06-19 19:00] LABS: Troponin-I HS 4 pg/mL (3.0-54.0)
== END 2022-06-19 19:30 | disposition home or self-care (01) ==
LOC: SDC 08:24 → AC 08:25
PROVIDERS: Anesthesiology; PCP Family Medicine; Referring Provider Surgery; Visit Provider Surgery
PROC: (CPT 19301; principal; 2022-06-19 11:45)
DX: D05.11 Intraductal carcinoma in situ of right breast (principal); D23.5 Other benign neoplasm of skin of trunk; I10 Essential (primary) hypertension; E78.00 Pure hypercholesterolemia, unspecified; G47.30 Sleep apnea, unspecified; Z79.899 Other long term (current) drug therapy; Z85.828 Personal history of other malignant neoplasm of skin
CPT/HCPCS: 19301; 11200; 38900; 38525; 19283; 00404; 19281; 38792; 76098; 84484; 88305; 88307; 88331; 88332; 88341; 88342; 93005; A9541; J7120; J2405; J3490; Q9968

== ENCOUNTER → 2022-07-18 | Outpatient (CLI) | payer MEDICARE, OTHER, SELFPAY ==
--- NOTE | 2022-07-18 08:25 | BD_ITS ---
STUDY: DUAL ENERGY X-RAY ABSORPTIOMETRY / DXA REASON FOR EXAM: Female, 72 years old. SCREENING TECHNIQUE: Bone Mineral Density (BMD) measurements of lumbar spine and bilateral hips were obtained. COMPARISON: Comparison is made with prior examination dated 04/19/2020. FINDINGS: Lumbar Spine (L1-L4): g/cm2 (0.958) / T-score (-0.8) / Z-score (1.4) Findings are suggestive of normal bone density with a low fracture risk. Left Femur Total: g/cm2 (0.873) / T-score (-0.6) / Z-score (1.0) Left Femoral Neck: g/cm2 (0.719) / T-score (-1.2) / Z-score (0.7) Right Femur Total: g/cm2 (0.813) / T-score (-1.1) / Z-score (0.5) Right Femoral Neck: g/cm2 (0.660) / T-score (-1.7) / Z-score (0.2) The T-Scores on the most recent prior examination were: Lumbar Spine (L1-L4): There has been worsening of bone density since the previous examination. Left Femur Total: which represents an improvement of 6%. Right Femur Total: which represents an improvement of 3.6%. BD/Dexa Bone Density Study IMPRESSION: The patient is considered osteopenic as outlined below according to World [employer] Organization (WHO) criteria with a moderate fracture risk. There has been improvement of bone density since the previous examination. Reference Information: The T-score is the number of standard deviations above or below the standard which is normal for young adults at their peak bone mineral density. The World Health Organization (WHO) interprets the T-scores as follows: Above -1 Normal bone density Between -1 and -2.5 Osteopenia Equal to / or below -2.5 Osteoporosis As a practical clinical guideline, osteopenia may be graded as follows: Mild -1 through -1.5 Moderate -1.6 through -2.0 Severe -2.1 through -2.4 The Z-score is the number of standard deviations above or below age-matched controls. A Z-score of less than -1.5 would be considered abnormal. References: 1. NIH Osteoporosis and Related Bone Diseases www osteo.org 2. International Society for Clinical Densitometry www iscd.org 3. National Osteoporosis Foundation www nof.org Electronically Signed: Danielito Chong MD at 9:31 EST ,
== END | disposition home or self-care (01) ==
LOC: OPBD 08:14
PROVIDERS: PCP Family Medicine; Visit Provider Internal Medicine Hematology & Oncology
DX: M85.89 Other specified disorders of bone density and structure, multiple sites (principal); Z13.820 Encounter for screening for osteoporosis
CPT/HCPCS: 77080

== ENCOUNTER → 2022-10-17 | Outpatient (CLI) | payer MEDICARE, OTHER, SELFPAY ==
[2022-10-17 11:20] LABS: Mucous, Urine 0 SEEN /hpf (<or=2+); White Blood Cells 0 SEEN /hpf (0-5)
[2022-10-17 12:46] LABS: Absolute Lymphocyte Count 0.73 X10^3/uL (0.83-4.51); Absolute Neutrophil Count 2.7 X10^3/uL (2.0-7.7); Basophil# 0.02 X10^3/uL; Basophil% 0.5 % (0-1); Eosinophil# 0.06 X10^3/uL; Eosinophils% 1.5 % (0-5); Hematocrit 46.7 % (37-47); Hemoglobin 15.5 g/dL (12.0-15.0); Lymphocyte # 0.73 X10^3/ul (0.83-4.51); Lymphocyte % 18.3 % (19-41); Mean Corp Hgb Conc 33.2 g/dL (32-36); Mean Corpuscular Volume 93.4 fL (81-99); Mean Platelet Vol. 9.1 fl (6.2-12.0); Monocyte# 0.41 X10^3/uL; Monocyte% 10.3 % (0-10); NRBC Flagged by Analyzer 0 % (0-5); Neutrophil # 2.74 X10^3/uL (2.7-7.7); Neutrophil % 68.9 % (47-70); Platelet Count 217 K/mm3 (150-450); RBC Distribution Width CV 12.7 % (11.6-14.6); RBC Distribution Width SD 43.7 fl (35.1-43.9)
[2022-10-17 12:55] LABS: Color, Urine Yellow (Yellow); Glucose, Dipstick Normal (Normal); Ketone-Dipstick Negative (Negative); Leukocyte Esterase-Dipstick Negative /ul (Negative); Nitrite-Dipstick Negative (Negative); Occult Blood-Urine 25 /ul (Negative); Protein-Dipstick 15 mg/dl (Negative); Urine Bilirubin Dipstick Negative (Negative); Urine Clarity Sl. Cloudy (Clear); Urine Urobilinogen Normal (Normal)
[2022-10-17 13:06] LABS: Bacteria 1+ /hpf (None Seen); Red Blood Cells-Urine 0-5 SEEN /hpf (0-5); Squamous Epithelial Cells - UA 0-5 SEEN /hpf (5-10)
[2022-10-17 13:15] LABS: AST(SGOT) 23 U/L (15-37); Alanine Aminotransfer ALT/SGPT 32 U/L (13-56); Albumin, Serum 3.9 g/dL (3.2-5.0); Alkaline Phosphatase 84 U/L (45-117); Anion Gap 6 (5-15); BUN 20 mg/dL (7-18); BUN/Creat Ratio 19.8 RATIO (10-20); Calcium,Total 9.4 mg/dL (8.5-10.1); Chloride 108 mmol/L (98-107); Cholesterol 186 mg/dL (200); Creatinine, Serum 1.01 mg/dL (0.55-1.02); EST Glomerular Filtration Rate 57 mL/min (>60); Est Glom Filt Rate - Afr Amer 69 mL/min (>60); Globulin 3.8 g/dL (2.2-4.2); Glucose 123 mg/dL (74-106); High Density Lipoprotein 72 mg/dL; Potassium 3.6 mmol/L (3.5-5.1); Protein, Total 7.7 g/dL (6.4-8.2); Sodium Level 139 mmol/L (136-145); Triglycerides 127 mg/dL; Very Low Density Lipoprotein 25 mg/dL (5-40)
[2022-10-17 13:17] LABS: Vitamin D,25 Hydroxy 29.5 ng/mL
[2022-10-18 14:11] LABS: Ferritin 190 ng/mL (8-252); Iron 89 ug/dL (50-170); Iron Binding Capacity,Total 328 ug/dL (250-450); PERCENT IRON SATURATION 27.1 % (15.0-55.0)
[2022-10-18 15:17] LABS: Hemoglobin A1c 5.7 % (3.8-5.6)
[2022-10-20 08:32] LABS: Transferrin 279 mg/dL (192-364)
== END | disposition home or self-care (01) ==
LOC: MFPLAB 11:17
PROVIDERS: PCP Family Medicine; Referring Provider Family Medicine; Visit Provider Family Medicine
DX: R71.8 Other abnormality of red blood cells (principal); R73.09 Other abnormal glucose; I10 Essential (primary) hypertension; M85.80 Other specified disorders of bone density and structure, unspecified site
CPT/HCPCS: 36415; 80053; 80061; 81001; 82306; 82728; 83036; 83540; 83550; 84466; 85025

== ENCOUNTER → 2023-01-30 | Outpatient (CLI) | payer MEDICARE, OTHER, SELFPAY ==
[2023-01-30 09:39] LABS: Bacteria 0 SEEN /hpf (None Seen); Mucous, Urine 0 SEEN /hpf (<or=2+); Squamous Epithelial Cells - UA 0 SEEN /hpf (5-10); White Blood Cells 0 SEEN /hpf (0-5)
[2023-01-30 10:44] LABS: Absolute Lymphocyte Count 0.81 X10^3/uL (0.83-4.51); Absolute Neutrophil Count 2.9 X10^3/uL (2.0-7.7); Basophil# 0.04 X10^3/uL; Basophil% 0.9 % (0-1); Eosinophil# 0.07 X10^3/uL; Eosinophils% 1.6 % (0-5); Hematocrit 44.8 % (37-47); Hemoglobin 14.5 g/dL (12.0-15.0); Lymphocyte # 0.81 X10^3/ul (0.83-4.51); Lymphocyte % 19.1 % (19-41); Mean Corp Hgb Conc 32.4 g/dL (32-36); Mean Corpuscular Volume 95.7 fL (81-99); Mean Platelet Vol. 9.2 fl (6.2-12.0); Monocyte% 9.4 % (0-10); NRBC Flagged by Analyzer 0 % (0-5); Neutrophil # 2.92 X10^3/uL (2.7-7.7); Neutrophil % 68.8 % (47-70); Platelet Count 221 K/mm3 (150-450); RBC Distribution Width CV 12.5 % (11.6-14.6); RBC Distribution Width SD 44.6 fl (35.1-43.9); Red Blood Count 4.68 M/mm3 (4.2-5.4); White Blood Count 4.3 K/mm3 (4.4-11.0)
[2023-01-30 11:00] LABS: Color, Urine Yellow (Yellow); Glucose, Dipstick Normal (Normal); Ketone-Dipstick Negative (Negative); Leukocyte Esterase-Dipstick Negative /ul (Negative); Nitrite-Dipstick Negative (Negative); Occult Blood-Urine 10 /ul (Negative); Protein-Dipstick Negative (Negative); Specific Gravity, Urine 1.005 (1.002-1.030); Urine Bilirubin Dipstick Negative (Negative); Urine Clarity Clear (Clear); Urine Urobilinogen Normal (Normal)
[2023-01-30 11:21] LABS: ALB/GLOB Ratio 1.1 RATIO (0.9-2.4); AST(SGOT) 20 U/L (15-37); Alanine Aminotransfer ALT/SGPT 29 U/L (13-56); Albumin, Serum 3.8 g/dL (3.2-5.0); Alkaline Phosphatase 82 U/L (45-117); Anion Gap 4 (5-15); BUN 18 mg/dL (7-18); BUN/Creat Ratio 18.2 RATIO (10-20); Calcium,Total 9.2 mg/dL (8.5-10.1); Chloride 109 mmol/L (98-107); Cholesterol 162 mg/dL (200); Creatinine, Serum 0.99 mg/dL (0.55-1.02); EST Glomerular Filtration Rate 59 mL/min (>60); Est Glom Filt Rate - Afr Amer 71 mL/min (>60); Globulin 3.6 g/dL (2.2-4.2); Glucose 115 mg/dL (74-106); High Density Lipoprotein 69 mg/dL; Potassium 3.8 mmol/L (3.5-5.1); Protein, Total 7.4 g/dL (6.4-8.2); Sodium Level 139 mmol/L (136-145); Triglycerides 105 mg/dL; Very Low Density Lipoprotein 21 mg/dL (5-40)
[2023-01-30 11:23] LABS: Red Blood Cells-Urine 0-5 SEEN /hpf (0-5)
[2023-01-30 11:27] LABS: Vitamin D,25 Hydroxy 69.1 ng/mL
[2023-01-30 16:13] LABS: Hemoglobin A1c 5.3 % (3.8-5.6)
== END | disposition home or self-care (01) ==
LOC: MFPLAB 09:33
PROVIDERS: PCP Family Medicine; Visit Provider Family Medicine
DX: M85.80 Other specified disorders of bone density and structure, unspecified site (principal); I10 Essential (primary) hypertension; R73.02 Impaired glucose tolerance (oral)
CPT/HCPCS: 36415; 80053; 80061; 81001; 82306; 83036; 85025

== ENCOUNTER → 2023-05-02 | Outpatient (CLI) | payer MEDICARE, OTHER, SELFPAY ==
--- NOTE | 2023-05-02 09:26 | BI_ITS ---
MAMMOGRAPHY - BILATERAL DIAGNOSTIC REASON FOR EXAM: Female, 73 years old. Prior right lumpectomy and radiation. Prior left stereotactic breast biopsy. PERTINENT HISTORY: Personal history of breast cancer. TECHNIQUE: Digital bilateral breast eligio (3D mammographic acquisition) in the CC and MLO projections. 2-D mediolateral oblique (MLO) and craniocaudad (CC) views of both breasts were obtained. CAD: Full Field Digital Mammography with Computer Added Detection was performed. COMPARISON: Comparison is made with prior study dated May 01, 2022 and April 20, 2021. FINDINGS: Breast Composition: There are scattered areas of fibroglandular density. The patient is status post lumpectomy in the deep upper lateral aspect of the right breast with resultant postoperative scarring at the operative site. Surgical clips are also seen in the right axilla. A tissue clip marker is seen within a lobulated 1.1 cm nodule in the central portion of the left breast. No other significant abnormalities are identified. BI/DIAG MAMM W/CAD, BILAT IMPRESSION: Status post lumpectomy in the deep upper lateral aspect of the right breast with resultant postoperative scarring. Surgical clips are seen in the right axilla. One year follow-up recommended. (A) ASSESSMENT CATEGORY: BIRADS Category 2: Benign. A letter regarding these results will be sent to the patient by the facility within 30 days. Approximately 10% of breast cancers are not detected by mammography. A normal mammogram should not delay biopsy of a clinically suspicious abnormality. Electronically Signed: Danielito Chong MD at 10:33 EDT ,
== END | disposition home or self-care (01) ==
LOC: OPBI 09:25
PROVIDERS: PCP Family Medicine; Referring Provider Student in an Organized Health Care Education/Training Program; Visit Provider Student in an Organized Health Care Education/Training Program
DX: R92.8 Other abnormal and inconclusive findings on diagnostic imaging of breast (principal)
CPT/HCPCS: 77062; 77066; G0279

== ENCOUNTER → 2023-10-29 | Outpatient (CLI) | payer MEDICARE, OTHER, SELFPAY ==
[2023-10-29 11:12] LABS: Bacteria 0 SEEN /hpf (None Seen); Mucous, Urine 0 SEEN /hpf (<or=2+); Red Blood Cells-Urine 0 SEEN /hpf (0-5)
[2023-10-29 12:20] LABS: Absolute Lymphocyte Count 1.06 X10^3/uL (0.83-4.51); Basophil# 0.03 X10^3/uL; Basophil% 0.6 % (0-1); Eosinophil# 0.07 X10^3/uL; Eosinophils% 1.5 % (0-5); Hematocrit 43.9 % (37-47); Hemoglobin 14.6 g/dL (12.0-15.0); Lymphocyte # 1.06 X10^3/ul (0.83-4.51); Lymphocyte % 22.9 % (19-41); Mean Corp Hgb Conc 33.3 g/dL (32-36); Mean Corpuscular Volume 93.2 fL (81-99); Mean Platelet Vol. 9.2 fl (6.2-12.0); Monocyte# 0.44 X10^3/uL; Monocyte% 9.5 % (0-10); NRBC Flagged by Analyzer 0 % (0-5); Neutrophil % 65.1 % (47-70); Platelet Count 233 K/mm3 (150-450); RBC Distribution Width SD 44.7 fl (35.1-43.9); Red Blood Count 4.71 M/mm3 (4.2-5.4); White Blood Count 4.6 K/mm3 (4.4-11.0)
[2023-10-29 12:37] LABS: Color, Urine Yellow (Yellow); Glucose, Dipstick Normal (Normal); Ketone-Dipstick Negative (Negative); Leukocyte Esterase-Dipstick 100 /ul (Negative); Nitrite-Dipstick Negative (Negative); Occult Blood-Urine 25 /ul (Negative); Protein-Dipstick 15 mg/dl (Negative); Specific Gravity, Urine 1.005 (1.002-1.030); Urine Bilirubin Dipstick Negative (Negative); Urine Clarity Clear (Clear); Urine Urobilinogen Normal (Normal); Urine pH 6.5 (5.0 - 8.0)
[2023-10-29 12:46] LABS: Squamous Epithelial Cells - UA 0-5 SEEN /hpf (5-10); White Blood Cells 0-5 SEEN /hpf (0-5)
[2023-10-29 12:47] LABS: Vitamin D,25 Hydroxy 87.2 ng/mL
[2023-10-29 13:01] LABS: ALB/GLOB Ratio 1.1 RATIO (0.9-2.4); AST(SGOT) 20 U/L (15-37); Alanine Aminotransfer ALT/SGPT 34 U/L (13-56); Alkaline Phosphatase 93 U/L (45-117); Anion Gap 7 (5-15); BUN 20 mg/dL (7-18); Chloride 106 mmol/L (98-107); Cholesterol 170 mg/dL (200); Creatinine, Serum 1.05 mg/dL (0.55-1.02); EST Glomerular Filtration Rate 55 mL/min (>60); Est Glom Filt Rate - Afr Amer 66 mL/min (>60); Globulin 3.6 g/dL (2.2-4.2); Glucose 125 mg/dL (74-106); High Density Lipoprotein 80 mg/dL; Magnesium 2.2 mg/dL (1.6-2.6); Potassium 3.6 mmol/L (3.5-5.1); Protein, Total 7.6 g/dL (6.4-8.2); Sodium Level 140 mmol/L (136-145); Thyroid Stim Hormone (TSH) 1.34 uIU/mL (0.358-3.74); Triglycerides 78 mg/dL; Very Low Density Lipoprotein 16 mg/dL (5-40)
[2023-10-29 13:15] LABS: Hemoglobin A1c 5.2 % (3.8-5.6)
== END | disposition home or self-care (01) ==
LOC: MFPLAB 11:10
PROVIDERS: PCP Family Medicine; Visit Provider Family Medicine
DX: E78.00 Pure hypercholesterolemia, unspecified (principal); I10 Essential (primary) hypertension; M85.80 Other specified disorders of bone density and structure, unspecified site; R73.09 Other abnormal glucose
CPT/HCPCS: 36415; 80053; 80061; 81001; 82306; 83036; 83735; 84443; 85025

== ENCOUNTER → 2024-05-04 | Outpatient (CLI) | payer MEDICARE, OTHER, SELFPAY ==
--- NOTE | 2024-05-04 09:36 | BI_ITS ---
MAMMOGRAPHY - BILATERAL SCREENING REASON FOR EXAM: Female, 74 years old. Routine annual screening examination. PERTINENT HISTORY: Personal history of breast cancer. Prior right lumpectomy with radiation therapy. Remote left stereotactic breast biopsy. TECHNIQUE: Digital bilateral breast julián (3D mammographic acquisition) in the CC and MLO projections. 2-D mediolateral oblique (MLO) and craniocaudad (CC) views of both breasts were obtained. CAD: Full Field Digital Mammography with Computer Added Detection was performed. COMPARISON: Comparison is made with prior study May 02, 2023 and June 19, 2022. FINDINGS: Breast Composition: There are scattered areas of fibroglandular density. There are no dominant masses or suspicious calcifications. The patient is status post lumpectomy in the deep upper lateral aspect of the right breast. Resultant postoperative changes are seen although this has improved as compared to prior study. Surgical clips are seen in the right axilla. A tissue clip marker seen within the lobulated fat-containing nodule in the upper central portion of the left breast. No other significant abnormalities are identified. There has been no significant change since the prior study. BI/SCRN MAMM (CAD)W/JULIÁN BILAT IMPRESSION: Stable bilateral screening mammogram. Yearly follow-up mammogram recommended. (A) ASSESSMENT CATEGORY: BIRADS Category 2: Benign. A letter regarding these results will be sent to the patient by the facility within 30 days. Approximately 10% of breast cancers are not detected by mammography. A normal mammogram should not delay biopsy of a clinically suspicious abnormality. [id number] Electronically Signed: Danielito Chong MD at 10:38 EDT ,
== END | disposition home or self-care (01) ==
LOC: OPBI 09:35
PROVIDERS: PCP Family Medicine; Referring Provider Internal Medicine Hematology & Oncology; Visit Provider Internal Medicine Hematology & Oncology
DX: Z12.31 Encounter for screening mammogram for malignant neoplasm of breast (principal); Z85.3 Personal history of malignant neoplasm of breast
CPT/HCPCS: 77063; 77067

== ENCOUNTER → 2024-07-30 | Outpatient (CLI) | payer MEDICARE, OTHER, SELFPAY ==
[2024-07-30 08:32] LABS: Mucous, Urine 0 SEEN /hpf (<or=2+)
[2024-07-30 10:13] LABS: Absolute Lymphocyte Count 1.53 X10^3/uL (0.83-4.51); Absolute Neutrophil Count 2.9 X10^3/uL (2.0-7.7); Basophil# 0.05 X10^3/uL; Eosinophil# 0.09 X10^3/uL; Eosinophils% 1.8 % (0-5); Hematocrit 44.5 % (37-47); Hemoglobin 14.3 g/dL (12.0-15.0); Lymphocyte # 1.53 X10^3/ul (0.83-4.51); Lymphocyte % 30.6 % (19-41); Mean Corp Hgb Conc 32.1 g/dL (32-36); Mean Corpuscular Hgb 30.4 pg (27.0-32.0); Mean Corpuscular Volume 94.5 fL (81-99); Mean Platelet Vol. 9.2 fl (6.2-12.0); Monocyte# 0.43 X10^3/uL; Monocyte% 8.6 % (0-10); NRBC Flagged by Analyzer 0 % (0-5); Neutrophil # 2.88 X10^3/uL (2.7-7.7); Neutrophil % 57.6 % (47-70); Platelet Count 241 K/mm3 (150-450); RBC Distribution Width CV 12.8 % (11.6-14.6); RBC Distribution Width SD 44.5 fl (35.1-43.9); Red Blood Count 4.71 M/mm3 (4.2-5.4)
[2024-07-30 10:19] LABS: Color, Urine Yellow (Yellow); Glucose, Dipstick Normal (Normal); Ketone-Dipstick Negative (Negative); Leukocyte Esterase-Dipstick 500 /ul (Negative); Nitrite-Dipstick Negative (Negative); Occult Blood-Urine 50 /ul (Negative); Protein-Dipstick 15 mg/dl (Negative); Specific Gravity, Urine 1.015 (1.002-1.030); Urine Bilirubin Dipstick Negative (Negative); Urine Clarity Clear (Clear); Urine Urobilinogen Normal (Normal)
[2024-07-30 10:34] LABS: White Blood Cells 5-10 SEEN /hpf (0-5)
[2024-07-30 10:35] LABS: Bacteria 1+ /hpf (None Seen); Red Blood Cells-Urine 0-5 SEEN /hpf (0-5)
[2024-07-30 10:36] LABS: Squamous Epithelial Cells - UA 0-5 SEEN /hpf (5-10)
[2024-07-30 10:43] LABS: Hemoglobin A1c 5.5 % (3.8-5.6)
[2024-07-30 11:10] LABS: AST(SGOT) 22 U/L (15-37); Alanine Aminotransfer ALT/SGPT 38 U/L (13-56); Albumin, Serum 3.8 g/dL (3.2-5.0); Alkaline Phosphatase 96 U/L (45-117); Anion Gap 4 (5-15); BUN 16 mg/dL (7-18); BUN/Creat Ratio 16.6 RATIO (10-20); Calcium,Total 9.6 mg/dL (8.5-10.1); Chloride 107 mmol/L (98-107); Cholesterol 176 mg/dL (200); Creatinine, Serum 0.96 mg/dL (0.55-1.02); EST Glomerular Filtration Rate 60 mL/min (>60); Est Glom Filt Rate - Afr Amer 73 mL/min (>60); Globulin 3.9 g/dL (2.2-4.2); Glucose 102 mg/dL (74-106); High Density Lipoprotein 69 mg/dL; Protein, Total 7.7 g/dL (6.4-8.2); Sodium Level 140 mmol/L (136-145); Triglycerides 106 mg/dL; Very Low Density Lipoprotein 21 mg/dL (5-40)
== END | disposition home or self-care (01) ==
LOC: MFPLAB 08:30
PROVIDERS: PCP Family Medicine; Referring Provider Family Medicine; Visit Provider Family Medicine
DX: R82.81 Pyuria (principal); I10 Essential (primary) hypertension; R73.02 Impaired glucose tolerance (oral)
CPT/HCPCS: 36415; 80053; 80061; 81001; 83036; 85025; 87086; 87088

== ENCOUNTER → 2024-08-05 | Outpatient (CLI) | payer MEDICARE, OTHER, SELFPAY ==
[2024-08-05 12:39] LABS: Vitamin D,25 Hydroxy 83.8 ng/mL
== END | disposition home or self-care (01) ==
LOC: MFPLAB 10:44
PROVIDERS: PCP Family Medicine; Referring Provider Family Medicine; Visit Provider Family Medicine
DX: E55.9 Vitamin D deficiency, unspecified (principal)
CPT/HCPCS: 36415; 82306

== ENCOUNTER → 2024-08-18 | Outpatient (CLI) | payer MEDICARE, OTHER, SELFPAY ==
--- NOTE | 2024-08-18 12:28 | BD_ITS ---
PROCEDURE: DEXA BONE DENSITY STUDY REASON FOR EXAM: F, age 74 y/o . Postmenopausal. TECHNIQUE: DEXA scan of the lumbar spine and both hips. COMPARISON: Comparison is made with prior study dated July 18, 2022. FINDINGS: Lumbar Spine (L1-L4): g/cm2 (0.930)/T-score (-1.1)/Z-score (1.3) findings are suggestive of osteopenia with a low fracture risk. Left Femur Total: g/cm2 (0.793)/T-score (-1.2)/Z-score (0.5) Left Femoral Neck: g/cm2 (0.668)/T-score (-1.6)/Z-score (0.4) Right Femur Total: g/cm2 (0.752)/T-score (-1.6)/Z-score (0.1) Right Femoral Neck: g/cm2 (0.619)/T-score (-2.1)/Z-score (-0.1) The T-Scores on the most recent prior examination were: Lumbar Spine (L1-L4): There has been loss of bone density since the previous examination. Left Femur Total: Loss of 9.1%. Right Femur Total: Loss of 7.5%. BD/Dexa Bone Density Study IMPRESSION: The patient is considered osteopenic as outlined below according to [employer] (WHO) criteria with a moderate fracture risk. There has been loss of bone density since the previous examinat ion. Reading Location: [place] [id number]
== END | disposition home or self-care (01) ==
LOC: OPBD 12:22
PROVIDERS: PCP Family Medicine; Referring Provider Nurse Practitioner Family; Visit Provider Nurse Practitioner Family
DX: Z78.0 Asymptomatic menopausal state (principal); M85.89 Other specified disorders of bone density and structure, multiple sites; Z79.811 Long term (current) use of aromatase inhibitors
CPT/HCPCS: 77080

== ENCOUNTER → 2024-12-01 | Outpatient (CLI) | payer MEDICARE, OTHER, SELFPAY ==
[2024-12-01 08:41] LABS: Mucous, Urine 0 SEEN /hpf (<or=2+)
[2024-12-01 10:02] LABS: Color, Urine Yellow (Yellow); Glucose, Dipstick Normal (Normal); Ketone-Dipstick Negative (Negative); Leukocyte Esterase-Dipstick 500 /ul (Negative); Nitrite-Dipstick Negative (Negative); Occult Blood-Urine 50 /ul (Negative); Protein-Dipstick 15 mg/dl (Negative); Urine Bilirubin Dipstick Negative (Negative); Urine Clarity Clear (Clear); Urine Urobilinogen Normal (Normal)
[2024-12-01 10:13] LABS: Absolute Lymphocyte Count 1.09 X10^3/uL (0.83-4.51); Absolute Neutrophil Count 2.4 X10^3/uL (2.0-7.7); Basophil# 0.03 X10^3/uL; Basophil% 0.8 % (0-1); Eosinophil# 0.09 X10^3/uL; Eosinophils% 2.3 % (0-5); Hematocrit 43.5 % (37-47); Hemoglobin 14.6 g/dL (12.0-15.0); Lymphocyte # 1.09 X10^3/ul (0.83-4.51); Lymphocyte % 27.5 % (19-41); Mean Corp Hgb Conc 33.6 g/dL (32-36); Mean Corpuscular Hgb 31.5 pg (27.0-32.0); Mean Platelet Vol. 9.3 fl (6.2-12.0); Monocyte# 0.32 X10^3/uL; Monocyte% 8.1 % (0-10); NRBC Flagged by Analyzer 0 % (0-5); Neutrophil # 2.41 X10^3/uL (2.7-7.7); Neutrophil % 60.8 % (47-70); Platelet Count 196 K/mm3 (150-450); RBC Distribution Width CV 13.2 % (11.6-14.6); RBC Distribution Width SD 45.3 fl (35.1-43.9); Red Blood Count 4.63 M/mm3 (4.2-5.4)
[2024-12-01 10:33] LABS: Hemoglobin A1c 5.7 % (<=5.6)
[2024-12-01 10:40] LABS: ALB/GLOB Ratio 1.4 RATIO (0.9-2.4); AST(SGOT) 22 U/L (<=31); Alanine Aminotransfer ALT/SGPT 21 U/L (<=34); Albumin, Serum 4.3 g/dL (3.4-4.8); Alkaline Phosphatase 95 U/L (35-104); Anion Gap 12 (5-15); BUN 18 mg/dL (4-19); BUN/Creat Ratio 19.6 RATIO (10-20); Calcium,Total 9.8 mg/dL (7.6-11.0); Chloride 104 mmol/L (98-108); Cholesterol 190 mg/dL (<=200); Creatinine, Serum 0.93 mg/dL (0.70-1.20); EST Glomerular Filtration Rate 65 (>60); Globulin 3.1 g/dL (2.2-4.2); Glucose 111 mg/dL (70-99); High Density Lipoprotein 69 mg/dL; Low Density Lipoprotein Calc. 93 mg/dL; Potassium 3.9 mmol/L (3.3-5.1); Protein, Total 7.4 g/dL (5.9-8.4); Sodium Level 141 mmol/L (133-145); Total Bilirubin 0.88 mg/dL (0.00-1.30); Triglycerides 138 mg/dL; Very Low Density Lipoprotein 28 mg/dL (5-40); Vitamin D,25 Hydroxy 69.3 ng/mL (30-100); cholesterol:hdl ratio screen 2.74
[2024-12-01 13:10] LABS: Bacteria RARE /hpf (None Seen); Squamous Epithelial Cells - UA 0-5 SEEN /hpf (5-10); White Blood Cells 10-25 SEEN /hpf (0-5)
[2024-12-01 13:11] LABS: Transitional Epithelial - Ur 0-5 SEEN /hpf (0-5)
[2024-12-01 13:15] LABS: Red Blood Cells-Urine 0-5 SEEN /hpf (0-5)
== END | disposition home or self-care (01) ==
LOC: MTLAB 08:35
PROVIDERS: PCP Family Medicine; Referring Provider Family Medicine; Visit Provider Family Medicine
DX: R82.81 Pyuria (principal); R73.02 Impaired glucose tolerance (oral); E55.9 Vitamin D deficiency, unspecified; E78.00 Pure hypercholesterolemia, unspecified
CPT/HCPCS: 36415; 80053; 80061; 81001; 82306; 83036; 85025; 87077; 87086; 87088; 87186

== ENCOUNTER → 2025-05-06 | Outpatient (CLI) | payer MEDICARE, OTHER, SELFPAY ==
--- NOTE | 2025-05-06 11:00 | BI_ITS ---
EXAM: BI/SCRN MAMM (CAD)W/JULIÁN BILAT
== END | disposition home or self-care (01) ==
LOC: OPBI 10:54
PROVIDERS: PCP Family Medicine; Referring Provider Nurse Practitioner Family; Visit Provider Nurse Practitioner Family
DX: Z12.31 Encounter for screening mammogram for malignant neoplasm of breast (principal)
CPT/HCPCS: 77063; 77067